=== PATIENT | female | born 1960 | race Caucasian/White ===

== ENCOUNTER 2016-10-12 16:50 | Emergency (ER) | payer OTHER ==
--- NOTE | ~2016-10-12 | EKG ---
PATIENT: MIRIAM CHERRY UNIT #: [id number] Ventricular Rate: 89 BPM Atrial Rate: 89 BPM P-R Interval: 144 ms QRS Duration: 78 ms Q-T Interval: 388 ms QTC Calculation(Bezet): 472 ms P [place]: 43 degrees Calculated R [place]: 78 degrees Calculated T [place]: 15 degrees Diagnosis Line: Normal sinus rhythm Diagnosis Line: Normal ECG Diagnosis Line: Diagnosis Line: Confirmed by DAMIAN ROLON MD ([id number]) on 10/13/2016 Diagnosis Line: 11:18:38 PM INTERPRETING MD: GONZALES ZHENG
--- NOTE | ~2016-10-12 | CR72 ---
[facility] A Service of [facility] RADIOLOGY TEXT RESULTS PATIENT: MIRIAM CHERRY LOCATION: [facility] : 60 UNIT #: [id number] AGE: [address]: Jamar North MD SEX: F ORDER DR: [id number] [facility] [address] [place], [place] [address] [id number] E MR#: [id number] Acc #: [id number] NAME: MIRIAM CHERRY : 1960 SEX: F STUDY DATE/TIME: 10/12/2016 16:55 UNIT: [facility] ROOM: STUDY DESCRIPTION: CR Chest Single View Portable Attending Physician: Jamar North M.D. Ordering Physician: Ed Doctor [id number] [facility] Primary Care Physician: Josefina Wallace M.D. MEDICAL IMAGING REPORT This report is preliminary unless electronic signature is present EXAM Single-view chest INDICATIONS Chest pain. Shortness of air and anxiety. FINDINGS Single portable AP view of the chest compared to 07/16/2015. Heart and mediastinal contours normal. Lungs are clear. No pleural effusion. IMPRESSION Negative chest radiograph. Dictated by... Jimbo Osborn M.D. THIS IS AN ELECTRONICALLY VERIFIED REPORT Jimbo Osborn M.D. at 10/12/2016 10:06 PM RAIZA/sera TD: 10/12/2016 20:59 JOB #: [id number] MEDICAL IMAGING REPORT Page 1 of 1 COPY
[2016-10-12 16:02] LABS: BASOPHIL# 0.1 X10e3 (0-0.3); BASOPHIL% 0.9 % (0-2.5); EOSINOPHIL# 0.5 X10e3 (0-0.7); HEMATOCRIT 39.6 % (35.0-45.0); HEMOGLOBIN 12.5 gm/dL (12.0-16.0); LYMPHOCYTE% 17.2 % (17.0-45.0); MEAN CELL VOLUME 80.6 FL (83-96); MEAN CORPUSCULAR HEMOGLOBIN 25.4 PG (28-34); MEAN CORPUSCULAR HGB CONC 31.5 g/dL (30-36); MEAN PLATELET VOLUME 9.4 FL (6.5-11.5); MONOCYTE# 0.6 X10e3 (0-1.0); MONOCYTE% 5.3 % (3.0-12.0); NEUTROPHIL# 8.4 X10e3 (1.5-7.1); NEUTROPHIL% 72.6 % (40-75); PLATELET COUNT 251 X10e3 (140-420); RED BLOOD COUNT 4.91 X10e (3.90-5.30); RED CELL DISTRIBUTION WIDTH 15.7 % (11.0-15.5); WHITE BLOOD COUNT 11.6 X10e3 (4.0-10.5)
[2016-10-12 16:03] LABS: DIFF IND NO
[2016-10-12 16:34] LABS: ALBUMIN SERUM 3.9 g/dL (3.5-5.0); ALKALINE PHOSPHATASE 60 U/L (32-92); ALT (SGPT) 69 U/L (10-40); AST (SGOT) 52 U/L (10-42); BILIRUBIN,TOTAL 0.4 mg/dL (0.2-2.0); BLOOD UREA NITROGEN 10 mg/dL (9-23); BUN/CREATININE RATIO 14.28; CALCIUM SERUM 8.9 mg/dL (8.4-10.2); CARBON DIOXIDE 28 mmol/L (22-31); CHLORIDE 93 mmol/L (100-111); CREATININE SERUM 0.7 mg/dL (0.6-1.4); GLOM FILT RATE Estimated 96.9 mL/min (>60); GLUCOSE FASTING 238 mg/dL (70-110); POTASSIUM 4.5 mmol/L (3.5-5.1); PROTEIN TOTAL SERUM 7.7 g/dL (6.0-8.3); SODIUM 133 mmol/L (135-145)
[2016-10-12 16:37] LABS: BILIRUBIN, DIRECT <0.1 mg/dL (0.0-0.2); BILIRUBIN,INDIRECT 0.3 mg/dL (0.0-0.9)
[~2016-10-12 16:50] MED LIST: ACETAMINOPHEN PO; AEROBID7 GM; ALBUTEROL17 GM INH; ASPIRIN81 MG PO; CATAPRES0.1 MG PO; CLONIDINE PO; DEPAKOTE ER PO; DEPAKOTE PO; DOXEPIN PO; EFFEXOR XR PO; FLEXERIL PO; FLONASE16 GM; GLUCOPHAGE XR500 MG PO; LEVAQUIN PO; LEXAPRO20 MG PO; LISINOPRIL-HCTZ1 T19 PO; LOPRESSOR PO; LORTAB 7.51 TAB 7.5/ PO; METFORMIN PO; METOPROLOL TAR25 MG PO; NAPROXEN PO; NORVASC PO; PROVENTIL0.83 MG/ML IH; RANITIDINE HCL150 M1 PO; SEROQUEL PO; SEROQUEL400 MG PO; THEOPHYLLIN PO; TRAZODONE PO; ZANTAC PO
[2016-10-12 17:20] LABS: POC - CKMB 7.8 ng/mL (0.0-7.9); POC - TROPONIN <0.05 ng/mL (<=0.05)
[2016-10-12 18:34] LABS: POC - CKMB 4.9 ng/mL (0.0-7.9); POC - TROPONIN <0.05 ng/mL (<=0.05)
== END 2016-10-12 19:30 | disposition home or self-care (01) ==
LOC: CED 16:50
PROVIDERS: Emergency Medicine
DX: R07.9 Chest pain, unspecified (principal); F41.9 Anxiety disorder, unspecified; I10 Essential (primary) hypertension; J45.909 Unspecified asthma, uncomplicated; E11.9 Type 2 diabetes mellitus without complications; F32.9 Major depressive disorder, single episode, unspecified; Z98.890 Other specified postprocedural states; Z88.5 Allergy status to narcotic agent
CPT/HCPCS: 36415; 71010; 80048; 80076; 82553; 83690; 84484; 85025; 93005; 99284